=== PATIENT | male | born 1995 | race Two or more races ===

== ENCOUNTER 2018-01-12 21:30 | Emergency (ER) | payer BC ==
[~2018-01-12] VITALS: Ht 172.7 cm; Wt 65.8 kg
[2018-01-12] MEDS ORDERED: PREDNISONE20 MG ORAL (21:39)
[2018-01-12] MEDS ORDERED: EPIPEN 2-P0.3 MG/0.3 IM (21:39)
[2018-01-12 21:40] VITALS: BP 131/97
--- NOTE | 2018-01-12 21:40 | Emergency Room Report ---
History of Present Illness General Chief Complaint: To Be Triaged Source: Patient Present Illness HPI This is a 22-year-old male with a history of allergy to peanuts. He presents with allergic reaction. He was eating chicken wings and had allergic reaction. He found that was cooked in peanut oil. He took 3 Benadryl and he got better. Onset was an hour half ago. Half an hour ago it came back and he took another Benadryl. He came here by taxi. He complaining of some coughing and subjective wheezing and short of breath. No rash. Patriot itchy. No fever chills but no nausea no vomiting. Similar symptom in the past for he was prescribed an EpiPen. Did not use it comes it was . Allergies: Uncoded Allergies: PEANUTS (Allergy, Unknown, 01/12/18) Patient History Past Medical History: see triage record, old chart reviewed Past Surgical History: none Pertinent Family History: none Social History: Denies: smoking Immunizations: other Reviewed Nursing Documentation: PMH: Agreed; PSxH: Agreed Review of Systems Eye: Denies: eye pain, blurred vision ENT: Denies: ear pain, nose congestion, throat swelling Respiratory: Reports: cough, shortness of breath Cardiovascular: Denies: chest pain, palpitations Gastrointestinal: Denies: abdominal pain, diarrhea, nausea, vomiting Musculoskeletal: Denies: back pain, joint pain Skin: Denies: rash Neurological: Denies: headache, numbness Endocrine: Denies: increased thirst, increased urine Hematologic/Lymphatic: Denies: easy bruising All Other Systems: negative except mentioned in HPI Physical Exam vitals unremarkable except for tachycardia Sp02 EP Interpretation: reviewed, normal General Appearance: well appearing, no apparent distress, alert Head: normocephalic, atraumatic Eyes: bilateral eye PERRL, bilateral eye EOMI ENT: hearing grossly normal, normal pharynx Neck: full range of motion, supple, no meningismus Respiratory: chest non-tender, lungs clear, normal breath sounds Cardiovascular #1: regular rate, rhythm, no murmur Gastrointestinal: normal bowel sounds, non tender, no mass, no organomegaly, no bruit, non-distended Musculoskeletal: back normal, gait/station normal, normal range of motion Psychiatric: mood/affect normal Skin: warm/dry Medical Decision Making Diagnostic Impression: Primary Impression: Allergic reaction to food Qualified Codes: T78.1XXA - Other adverse food reactions, not elsewhere classified, initial encounter ER Course Is in with allergic reaction to peanut. Better now. No evidence of anaphylaxis or rest or distress. We'll discharge home with prescription for EpiPen and steroid. Status: improved Disposition: HOME, SELF-CARE Condition: Stable Scripts Epinephrine (Epipen 2-Matthew) 0.3 Mg/0.3 Ml Auto.injct 0.3 MG IM ONCE, #1 EA Prov: KERLINE ESTRELLA M.D. 01/12/18 Prednisone* (PREDNISONE*) 20 Mg Tablet 40 MG ORAL DAILY, #6 TAB Prov: KERLINE ESTRELLA M.D. 01/12/18 Additional Instructions: Continue with Benadryl as needed. Follow-up with your DrChris in 3-5 days of not better. Return if symptom worsen. KERLINE ESTRELLA M.D. Jan 12, 2018 21:40
[2018-01-12] MEDS ORDERED: Solu-MEDROL 125mg Inj IVP ONE (21:45)
[2018-01-12] MEDS ORDERED: Albuterol ud Inhalation HHN ONE (21:45)
[2018-01-12] MEDS ORDERED: EPINEPHrine 1mg/1ml Amp IM ONE (22:30)
[2018-01-12 23:45] VITALS: BP 114/76
== END 2018-01-12 23:45 | disposition home or self-care (01) ==
LOC: EMR 21:43
DX: T78.1XXA Other adverse food reactions, not elsewhere classified, initial encounter (principal); X58.XXXA Exposure to other specified factors, initial encounter
CPT/HCPCS: 94640; 94664; 96372; 96374; 99284; J0171; J2930